=== PATIENT | female | born 1955 | race Caucasian/White ===

== ENCOUNTER 2017-03-14 18:54 | Inpatient (IN) ==
[2017-03-14] MEDS ORDERED: MORPHINE SULFATE 4mg INJECTION IVP ONE ×2 (19:10→20:02)
[2017-03-14] MEDS ORDERED: ONDANSETRON 4 MG/2 ML INJECTION IVP ONE (19:10)
[2017-03-14] MEDS ORDERED: NS 1,000 ML IV ONE (19:11)
--- NOTE | 2017-03-14 19:13 | Emergency Department Report ---
Abdominal Pain HPI - General Chief Complaint: Abdominal Pain Stated Complaint: abdominal pain Time Seen by Provider: 03/14/17 19:03 Source: patient Mode of arrival: ambulatory Limitations: no limitations - History of Present Illness HPI narrative: She has been having some epigastric abdominal pain for the last week. She started vomiting yesterday and has been having some diarrhea as well. Does not think that she has been having some fevers. Has not seen her PCP for this. MD complaint: abdominal pain, other (nausea/vomiting/diarrhea) Onset (ago): week(s) (1 week) Consistency: constant Severity: moderate Quality: sharp Radiation: none Relieving factors: nothing Exacerbating factors: nothing Associated symptoms: nausea, vomiting, diarrhea - Related Data Home Medications Medication Instructions Recorded Confirmed No known Home medications [No home 03/14/17 03/14/17 meds] Allergies Allergy/AdvReac Type Severity Reaction Status Date / Time No Known Allergies Allergy Verified 03/14/17 19:44 Review of Systems Constitutional: Denies: fever, chills, weakness ENT: Denies: ear pain, throat pain, congestion Cardiovascular: Denies: chest pain, palpitations, dyspnea on exertion Respiratory: Denies: cough Gastrointestinal: Reports: abdominal pain, nausea, vomiting, diarrhea Genitourinary: Denies: urgency, dysuria, frequency Integumentary: Denies: rash Neurological: Denies: headache, weakness, numbness, paresthesias PFSH Patient Stated Medical History Hypertension Yes Post Menopausal Yes Daily ETOH Surgical History: Cholecystectomy - Social History Smoking status: Heavy tobacco smoker Substance use type: does not use Alcohol intake frequency: 0-2 drinks per day Physical Exam - Limitations Limitations: no limitations - General General appearance: alert, in no apparent distress - Normal Exams: Neck:: Full range of motion, without adenopathy, JVD, bruits or thyromegaly Chest/Respirations:: Clear all baltazar, with good airflow, and symmetry bilaterally Cardiovascular:: Regular rate and rhythm, without murmur or gallop, Pulses 2+ all extremities, capillary refill, <2 seconds all extremities Abdomen:: Bowel sounds positive, non-distended, no hepatosplenomegaly, masses or bruits noted Neurological:: Patient is alert, and oriented Psychiatric:: Patient exhibits, appropriate attention, emotion and affect - Abdominal Exam Abdominal exam: Present: soft, tenderness (TTP in the epigastric region but without guarding), normal bowel sounds. Absent: distention, guarding, rebound Abdominal Pain - [facility] Narrative Medical decision making narrative: Lipase is elevated at 25,000. Ct does show pancreatitis with some and some edema of duodenum. She has had her gallbladder out. Does admit to drinking rum daily. Discussed findings with Dr Mcduffie. Will admit at this time. - Differential Diagnosis Differential diagnosis: Likely: abdominal pain, acute appendicitis, constipation , pancreatitis, small bowel obstruction - Lab Data Attestation: I reviewed the patient's lab results. Result diagrams: 03/14/17 19:28 03/14/17 19:28 - Radiology Data Attestation: I reviewed the patient's radiology results. CT abdomen/pelvis: acute pancreatitis favored over duodenitis. Fatty liver. Disposition Clinical Impression: Pancreatitis Qualifiers: Chronicity: acute Pancreatitis type: alcohol induced Acute pancreatitis complication: unspecified Qualified Code(s): K85.20 - Alcohol induced acute pancreatitis without necrosis or infection [place] [facility] [place] Care Condition: Stable Prescriptions: No Action No known Home medications [No home meds] 0 #0 [facility] [place] Referrals: Jorge Levy MD [Family Provider] - Time of Disposition: 21:20 - Seen By: midlevel
[2017-03-14] MEDS: SALINE FLUSH 10ml SYRINGE IVF PRN (19:29)
[2017-03-14] MEDS ORDERED: SALINE FLUSH 10ml SYRINGE ONE (20:16)
[2017-03-14] MEDS ORDERED: IOHEXOL 300mg/ml 75ml INJECTION ONE (20:16)
[2017-03-14] MEDS ORDERED: ALBUTEROL 2.5mg/3ml (0.083%) NEB AEROSOL PRN (22:08)
[2017-03-14] MEDS ORDERED: ONDANSETRON 4 MG/2 ML INJECTION IVP PRN (22:08)
[2017-03-14] MEDS ORDERED: METOCLOPRAMIDE 10mg/2ml INJECTION IVP PRN (22:08)
[2017-03-14] MEDS: LR 1,000 ML IV SCH (22:24)
[2017-03-14] MEDS: PANTOPRAZOLE 40 MG INJECTION IVP SCH (22:29)
[2017-03-14] MEDS ORDERED: KETOROLAC 15 MG/ML INJECTION IVP ONE (22:42)
--- NOTE | 2017-03-14 22:47 | History & Physical Report ---
History of Present Illness Date: 03/15/17 Chief complaint: abdominal pain HPI: Please note that the patient was seen via telemedicine with nursing assistance on 03/14/2017. Ms. Mark is a 61yo woman with history choly and appy along with etoh abuse. She presents with epigastric pain for nearly a week now over 5/10 and constant. Emesis stated yesterday and last stools 2 days ago loose. No blood in emesis or stool. No fevers, chills, sob. No meds normally. Recognizes half a pint of rum a day with no change. No weight change. No prior pancreatitis. Review of Systems All systems PM: 10-point ROS was reviewed, no additional remarkable complaints except Past Medical History Patient Stated Medical History Hypertension Yes Post Menopausal Yes Surgical History: Cholecystectomy. appy Family History Updates: father with CHF. mother breat cancer - Social History Smoking status: Current every day smoker Substance use type: does not use Alcohol intake frequency: 3 or more drinks per day Current occupational exposures/hazards: No Medications Home Medications Medication Instructions Recorded Confirmed Type No known Home medications [No home 03/14/17 03/14/17 History meds] Allergies Allergy/AdvReac Type Severity Reaction Status Date / Time No Known Allergies Allergy Verified 03/14/17 19:44 Exam Vital Signs: Temperature 98 F 03/14/17 22:09 Pulse Rate 68 03/14/17 22:09 Respiratory Rate 16 03/14/17 22:09 Blood Pressure 176/86 H 03/14/17 22:09 Pulse Oximetry 100 03/14/17 22:09 Telemetry Rhythm: Sinus Rhythm Height/Weight/BMI: Height 1.75 m Weight 63.2 kg Body Mass Index 20.5 - Constitutional Present: moderate distress - Routine HEENT Exam Eye: Present: EOMI ENT: Present: mucous membranes dry - Routine Neck Exam Present: full ROM - Routine Respiratory Exam Present: CTA bilaterally. Absent: accessory muscle use - Routine Cardiovascular Exam Present: RRR, S1, S2. Absent: no murmur - Routine Abdominal Exam Present: soft, tenderness Comments: hyperactive bowel sounds, no rebound or guarding - Routine Extremities Exam Absent: cyanosis, clubbing - Routine Back/Spine/Pelvis Exam Back/Spine: Present: full ROM - Routine Skin Exam Present: intact. Absent: cyanosis - Routine Neurological Exam Present: alert, oriented X3, CN II-XII intact Results - Labs CBC & Chem 7: 03/14/17 19:28 03/15/17 04:30 Assessment and Plan (1) Acute pancreatitis Current visit: Yes Status: Acute (2) Hypokalemia Current visit: Yes Status: Acute (3) Hypernatremia Current visit: Yes Status: Acute (4) Alcohol abuse Current visit: Yes Status: Acute (5) Tobacco abuse Current visit: Yes Status: Acute Assessment and Plan: 1. Acute alcohol induced pancreatitis--admit to inpatient with NPO to clear liquids tomorrow, IVF, PPI IV, prn pain and nausea medications. See 2. 2. Alcohol abuse--needs to stop with transaminitis. She understands. Thiamine , folate prn ativan with no prior withdrawal symptoms. 3. Tobacco abuse--needs to stop. 4. Hypernatremia and hypokalemia due to dehydration/emesis--IVF and recheck. 5. Hypoxia--monitor with splinting hopefully causal. prn nebs. Addendum by Dr. Mills HPI: I have seen and examined patient. She has had 2 days increasing nagging epigastric tenderness that it only worsened until admission. Decided slightly today with use of fluids and lack of oral intake. I agree with the note by Dr. Mcduffie ROS: have read the above note and no further additions to be made PMH PSH FH/SH: agree with above. No pertinent further family history PE: My findings agree with above. Abdomen dry box tender bowel sounds a rather muted. There is mild distention. Labs: reviewed. CT reviewed and shows acute edema surrounding the pancreas by my interpretation AP: as listed above. Patient is showing a CIWA score of 2 to4 throughout the day. I've encouraged her to request Ativan as needed. We've had a 10 minute discussion regarding smoking and alcohol cessation as these are her greatest modifiable risk factors. I am ordering a lipid panel for tomorrow in case there is extreme hypertriglyceridemia. Otherwise continue with care DVT Prophylaxis: SCD's GI Prophylaxis: Protonix - Physician Narrative Narrative: Date: 03/14/17 Time: 2243 Hospital Course Summary Disclaimer: The visit summary below is not to be considered part of the above Progress Note.
[2017-03-15] MEDS: MORPHINE SULFATE 4mg INJECTION IVP PRN ×4 (00:38→12:39)
[2017-03-15] MEDS ORDERED: NICOTINE PATCH REMOVAL TD PRN (06:18)
[2017-03-15] MEDS: LR 1,000 ML IV SCH ×5 (06:33→18:57)
[2017-03-15] MEDS: LORazepam 1 MG TABLET PO PRN ×2 (08:37→19:19)
[2017-03-15] MEDS: FOLIC ACID 1 MG TABLET PO SCH (08:37)
[2017-03-15] MEDS: SALINE FLUSH 10ml SYRINGE IVF PRN ×2 (12:39→21:25)
--- NOTE | 2017-03-15 13:01 | CT Scan Report ---
EXAM: CT abdomen pelvis w con DATE: 03/14/2017 12:00 AM ENCOUNTER: Initial INDICATION: abdominal pain COMPARISON: None available. TECHNIQUE: CT of the abdomen and pelvis with IV contrast. The patient received 74.3 mL of Omnipaque 300 without complication. Coronal and sagittal reformatted images were performed. The current CT scan was performed using radiation dose-reduction techniques. FINDINGS: Lower Chest: Bilateral dependent atelectasis within the visualized lung bases. The heart is normal in size without pericardial effusion. Abdomen: No intraperitoneal free air. Prominent inflammatory stranding and central mesenteric edema within the upper abdomen surrounding the duodenum and pancreas. No lymphadenopathy. Liver: The liver demonstrates diffuse hypoattenuation consistent with steatosis but enhances homogeneously without focal masses. Gallbladder and biliary: The gallbladder is surgically absent. No biliary ductal dilatation. Spleen: The spleen appears normal. Pancreas: The pancreas enhances homogeneously without necrosis or pseudocyst appreciated. Adrenal glands: The adrenal glands are normal in size and attenuation. Kidneys/ureters: The kidneys appear normal. The ureters are normal in course and caliber. GI tract: The stomach, small bowel, and colon appear grossly normal. The appendix is surgically absent. Vascular structures: The aorta is normal in course and caliber with aortoiliac atherosclerotic calcifications noted. The mesenteric arterial and venous structures appear patent. Pelvis: No pelvic free fluid. No pelvic lymphadenopathy. Calcified pelvic phleboliths. Bladder: The bladder appears normal. Genital system: The uterus and ovaries appear grossly normal. Skeletal structures and soft tissues: No acute osseous or soft tissue abnormality identified. Degenerative spondylosis of the visualized spine. IMPRESSION: 1. Prominent inflammatory stranding and mesenteric edema within the central upper abdomen surrounding the pancreas and duodenum likely representing acute pancreatitis versus less likely duodenitis. No pancreatic necrosis or pseudocyst identified. 2. Hepatic steatosis. 3. Cholecystectomy. The above report concurs with the preliminary report provided by [employer] at 9:00 PM. .
[2017-03-15] MEDS ORDERED: PNEUMOCOCCAL 13 VACCINE 0.5ml INJECTION IM ONE (14:49)
[2017-03-15] MEDS ORDERED: INFLUENZA VAC QIV 2017-18 (Fluarix*)(>=3yo) 0.5ml IM ONE (14:49)
[2017-03-15] MEDS ORDERED: INFLUENZA VAC. INJ. ADMIN CHARGE INJ ONE (15:00)
[2017-03-15] MEDS ORDERED: PNEUMOCOCCAL VAC ADMIN CHARGE INJ ONE (16:00)
[2017-03-15] MEDS: LABETALOL 100mg/20ml INJECTION IVP PRN (21:24)
[2017-03-15] MEDS: PANTOPRAZOLE 40 MG INJECTION IVP SCH (22:27)
[2017-03-15] MEDS ORDERED: FALL RISK - PHARMACY CONSULT XX ONE (23:04)
[2017-03-16] MEDS: LR 1,000 ML IV SCH ×5 (00:06→16:51)
[2017-03-16] MEDS: SALINE FLUSH 10ml SYRINGE IVF PRN ×2 (00:46→06:30)
[2017-03-16] MEDS: LABETALOL 100mg/20ml INJECTION IVP PRN ×2 (02:14→15:40)
[2017-03-16] MEDS ORDERED: MORPHINE SULFATE 2mg INJECTION IVP PRN (07:18)
[2017-03-16] MEDS: NICOTINE 14 MG PATCH TD PRN (07:53)
[2017-03-16] MEDS: MAGNESIUM SULFATE 1gm PREMIX 1 GM/100 ML BAG IV SCH ×2 (08:38→09:40)
--- NOTE | 2017-03-16 08:56 | Progress Note ---
- Date 03/16/17 Subjective: Marlena has been incredibly agitated all night. Staff has administered Ativan 2 mg nearly each hour. She hasn't been confused, just becomes angry/belligerent , tries to get out of bed and leave. She has been denying pain. When I arrived, she was resting with her eyes closed. She startled awake when the nurse put a BP cuff on and stated "I'm still here?" (along with profanity) then closed her eyes again. She has not had any seizures. She told the RN that she actually drinks about 3 pints of rum daily (versus 1/2 pint as she initially reported). Objective Vital signs: Temperature 97.9 F 03/16/17 08:00 Pulse Rate 84 03/16/17 08:00 Respiratory Rate 16 03/16/17 08:00 Blood Pressure 168/88 H 03/16/17 08:00 Pulse Oximetry 97 03/16/17 08:00 Height/Weight/BMI: Height 1.75 m Weight 64.6 kg Body Mass Index 20.5 - Constitutional Present: well nourished, well developed, other (see subjective) - Routine HEENT Exam Head: Present: normocephalic ENT: Present: oropharynx clear - Routine Respiratory Exam Present: CTA bilaterally - Routine Cardiovascular Exam Present: RRR, S1, S2 - Routine Abdominal Exam Present: normoactive bowel sounds, non tender, distended (mild), organomegaly ( hepatomegaly) - Routine Extremities Exam Present: no edema, pulses intact - Routine Musculoskeletal Exam Musculoskeletal: Present: no joint swelling - Routine Skin Exam Present: intact, dry, warm - Routine Neurological Exam When awake, there were no obvious neurologic deficits. She moves all extremities equally. - Routine Psychiatric Exam Present: agitated Results - Labs CBC & Chem 7: 03/16/17 03:20 03/16/17 03:24 Assessment and Plan (1) Acute pancreatitis Current visit: Yes Status: Acute (2) Hypokalemia Current visit: Yes Status: Acute (3) Hypernatremia Current visit: Yes Status: Acute (4) Alcohol abuse Current visit: Yes Status: Acute (5) Tobacco abuse Current visit: Yes Status: Acute Assessment and Plan: IMPRESSION AND PLAN 1. Acute alcohol induced pancreatitis--continue supportive care. Pain seems improved on 03/16/17. Continue clear liquid diet. Triglycerides (75); total cholesterol (202) 2. Alcohol abuse--requiring frequent high doses of high risk medication, IV ativan. Add Librium per detox order set. LFTs trending down. 3. Tobacco abuse--tobacco cessation counseling ordered. 4. Hypernatremia and hypokalemia due to dehydration/emesis--Na decreased and now low at 133; K improved to 3.7 5. Hypomagnesemia--Mg bolus ordered; recheck in am. 6. Hypoxia--resolved; maintaining sats on room air. Addendum by Dr. Mills Seen and examined patient on same day as the above note. Agree with history, physical, assessment and plan. Comprehensive physical findings correlate to the above note by nurse practitioner Barbie Damon. Patient is back to somnolent status by time of my seeing her, she is just gotten another dose of Ativan. I've also spoken to her over the phone who is called approximately every 2 hours according to nursing. His speech is slurred, his conversation meanders pointlessly. He has assured me that he has removed all the alcohol from the house, but his conversation signals that her abstinence is going to be a complex family dynamic. Documented on [employer] speech to text. Efforts to correct speech recognition errors performed, but variation may exist GI Prophylaxis: Protonix Resuscitation Status: Full Code - Physician Narrative Narrative: Date: 03/16/17 Time: 0851 Hospital Course Summary Disclaimer: The visit summary below is not to be considered part of the above Progress Note. Hospital Course: 03/15/17 1. Acute alcohol induced pancreatitis--admit to inpatient with NPO to clear liquids tomorrow, IVF, PPI IV, prn pain and nausea medications. See 2. 2. Alcohol abuse--needs to stop with transaminitis. She understands. Thiamine , folate prn ativan with no prior withdrawal symptoms. 3. Tobacco abuse--needs to stop. 4. Hypernatremia and hypokalemia due to dehydration/emesis--IVF and recheck. 5. Hypoxia--monitor with splinting hopefully causal. prn nebs. 03/16/17 1. Acute alcohol induced pancreatitis--continue supportive care. Pain seems improved on 03/16/17. Continue clear liquid diet. Triglycerides (75); total cholesterol (202) 2. Alcohol abuse--requiring frequent high doses of IV ativan. Add Librium per detox order set. LFTs trending down. 3. Tobacco abuse--tobacco cessation counseling ordered. 4. Hypernatremia and hypokalemia due to dehydration/emesis--Na decreased and now low at 133; K improved to 3.7 5. Hypomagnesemia--Mg bolus ordered; recheck in am. 6. Hypoxia--resolved; maintaining sats on room air.
[2017-03-16] MEDS: FOLIC ACID 1 MG TABLET PO SCH (10:44)
[2017-03-16] MEDS: PANTOPRAZOLE 40 MG INJECTION IVP SCH (22:23)
[2017-03-17] MEDS: LR 1,000 ML IV SCH (06:30)
[2017-03-17] MEDS ORDERED: POTASSIUM CHLORIDE INJ 20 MEQ in NS 1,000 ML IV SCH (08:15)
[2017-03-17] MEDS: NS with KCL 20mEq 1,000ml IV SCH (08:40)
[2017-03-17] MEDS: LIDOCAINE 1% INJ 10 MG, POTASSIUM CHLORIDE INJ 10 MEQ in NS 100 ML IV SCH ×4 (08:51→13:19)
--- NOTE | 2017-03-17 09:14 | Progress Note ---
- Date 03/17/17 Subjective: Marlena has had episodes of confusion and ongoing agitation. She has been tremulous. She frequently tries to climb out of bed and asks to leave. She is accusing the nursing staff of not letting her leave or eat anything. She denies any abdominal pain or nausea. Objective Vital signs: Temperature 99.4 F 03/17/17 07:04 Pulse Rate 85 03/17/17 07:04 Respiratory Rate 18 03/17/17 07:04 Blood Pressure 179/91 H 03/17/17 07:04 Pulse Oximetry 93 03/17/17 07:04 Height/Weight/BMI: Height 1.75 m Weight 63.5 kg Body Mass Index 20.5 - Constitutional Present: mild distress, thin - Routine HEENT Exam Head: Present: normocephalic Eye: Present: PERRL ENT: Present: oropharynx clear - Routine Respiratory Exam Present: CTA bilaterally - Routine Cardiovascular Exam Present: RRR, S1, S2 - Routine Abdominal Exam Present: normoactive bowel sounds, tenderness (minimal diffuse), distended (mild ) - Routine Extremities Exam Present: no edema, pulses intact - Routine Musculoskeletal Exam Musculoskeletal: Present: moving extremities well - Routine Skin Exam Present: dry, warm - Routine Psychiatric Exam Present: agitated Results - Labs CBC & Chem 7: 03/17/17 04:42 03/17/17 15:55 Assessment and Plan (1) Acute pancreatitis Current visit: Yes Status: Acute (2) Hypokalemia Current visit: Yes Status: Acute (3) Hypernatremia Current visit: Yes Status: Acute (4) Alcohol abuse Current visit: Yes Status: Acute (5) Tobacco abuse Current visit: Yes Status: Acute Assessment and Plan: IMPRESSION AND PLAN 1. Acute alcohol induced pancreatitis--continue supportive care. Lipase trending down and symptoms improving. Advance diet to full liquid. 2. Alcohol abuse--requiring frequent high doses of high risk medication, IV ativan for confusion, agitation, tremors. Continue Librium PRN. LFTs improving. Will need to assess willingness for abstinence/referral to support group when her confusion improves. 3. Hypernatremia and hypokalemia due to dehydration/emesis--Na improved but K has decreased to 2.9 and IV bolus has been ordered 4. Hypomagnesemia--resolved. 5. Tobacco abuse--tobacco cessation counseling ordered. 6. Hypoxia--resolved; maintaining sats on room air. Addendum by Dr. Mills: Seen and examined patient on same day as the above note. Agree with nurse practitioner Barbie Damon's subjective note, physical, assessment and plan. Comprehensive physical findings correlate to the above note. She is resting better by the time I had seen her but know that she becomes irritable when rousing. She is tremulous and I'm concerned that she will physically deconditioned as she recovers from her alcoholic withdrawal. I've increased her thiamine to reflect severity of her withdrawal. I am hoping that she will recover before she requires reconditioning Documented on [employer] speech to text. Efforts to correct speech recognition errors performed, but variation may exist DVT Prophylaxis: SCD's GI Prophylaxis: Protonix Resuscitation Status: Full Code - Physician Narrative Narrative: Date: 03/17/17 Time: 912 Hospital Course Summary Disclaimer: The visit summary below is not to be considered part of the above Progress Note. Hospital Course: 03/15/17 1. Acute alcohol induced pancreatitis--admit to inpatient with NPO to clear liquids tomorrow, IVF, PPI IV, prn pain and nausea medications. See 2. 2. Alcohol abuse--needs to stop with transaminitis. She understands. Thiamine , folate prn ativan with no prior withdrawal symptoms. 3. Tobacco abuse--needs to stop. 4. Hypernatremia and hypokalemia due to dehydration/emesis--IVF and recheck. 5. Hypoxia--monitor with splinting hopefully causal. prn nebs. 03/16/17 1. Acute alcohol induced pancreatitis--continue supportive care. Pain seems improved on 03/16/17. Continue clear liquid diet. Triglycerides (75); total cholesterol (202) 2. Alcohol abuse--requiring frequent high doses of IV ativan. Add Librium per detox order set. LFTs trending down. 3. Hypernatremia and hypokalemia due to dehydration/emesis--Na decreased and now low at 133; K improved to 3.7 4. Hypomagnesemia--Mg bolus ordered; recheck in am. 5. Hypoxia--resolved; maintaining sats on room air. 03/17/17 1. Acute alcohol induced pancreatitis--continue supportive care. Lipase trending down and symptoms improving. Advance diet to full liquid. 2. Alcohol abuse--requiring frequent high doses of high risk medication, IV ativan for confusion, agitation, tremors. Continue Librium PRN. LFTs improving. Will need to assess willingness for abstinence/referral to support group when her confusion improves. 3. Hypernatremia and hypokalemia due to dehydration/emesis--Na improved but K has decreased to 2.9 and IV bolus has been ordered 4. Hypomagnesemia--resolved.
[2017-03-17] MEDS: FOLIC ACID 1 MG TABLET PO SCH (10:09)
[2017-03-17] MEDS: NICOTINE 14 MG PATCH TD PRN (10:10)
[2017-03-17] MEDS: LORazepam 1 MG TABLET PO PRN (13:25)
[2017-03-17] MEDS: THIAMINE IV SCH (14:51)
[2017-03-17] MEDS: NS IV SCH (14:51)
[2017-03-17] MEDS: LABETALOL 100mg/20ml INJECTION IVP PRN (15:28)
[2017-03-17 15:39] VITALS: BMI 20.7
[2017-03-18] MEDS: NS with KCL 20mEq 1,000ml IV SCH ×3 (03:15→19:43)
[2017-03-18] MEDS: PANTOPRAZOLE 20 MG TABLET PO SCH (06:04)
[2017-03-18] MEDS: FOLIC ACID 1 MG TABLET PO SCH (08:58)
[2017-03-18] MEDS: NS IV SCH (08:59)
[2017-03-18] MEDS: THIAMINE IV SCH (08:59)
[2017-03-18] MEDS ORDERED: THIAMINE 200mg/2ml INJECTION IM SCH (09:00)
--- NOTE | 2017-03-18 10:25 | Progress Note ---
- Date 03/18/17 Subjective: Marlena was alert, sitting up in bed, calmer this morning. She communicates much more clearly, and told her nurse that she feels anxious and wants to go home. She is confused to date. She wanted to try to eat her breakfast on her own but found she needed nursing help. She is weak overall and tremulous. She states that she rested well last night. She denies abdominal pain or nausea. She stated that she wants to get treatment for her alcohol abuse. Objective Vital signs: Temperature 98.1 F 03/18/17 08:00 Pulse Rate 84 03/18/17 08:00 Respiratory Rate 18 03/18/17 08:00 Blood Pressure 168/96 H 03/18/17 08:00 Pulse Oximetry 95 03/18/17 08:00 Height/Weight/BMI: Height 1.75 m Weight 64.3 kg Body Mass Index 20.7 - Constitutional Present: well nourished, well developed, thin - Routine HEENT Exam Head: Present: normocephalic ENT: Present: oropharynx clear - Routine Respiratory Exam Present: CTA bilaterally - Routine Cardiovascular Exam Present: RRR, S1, S2 - Routine Abdominal Exam Present: normoactive bowel sounds, non tender, distended (mild) - Routine Extremities Exam Present: no edema - Routine Musculoskeletal Exam Musculoskeletal: Present: no erythema - Routine Skin Exam Present: intact, warm. Absent: dry (slightly diaphoretic) - Routine Neurological Exam Present: alert. Absent: oriented X3 - Routine Psychiatric Exam Present: cooperative Results - Labs CBC & Chem 7: 03/17/17 04:42 03/18/17 03:52 Assessment and Plan (1) Acute pancreatitis Current visit: Yes Status: Acute (2) Alcohol abuse Current visit: Yes Status: Acute Assessment and Plan: IMPRESSION Acute alcohol induced pancreatitis Alcohol abuse Hypokalemia Hypernatremia--resolved Hypomagnesemia--resolved Deconditioning and acute debility Tobacco abuse Hypoxia--resolved PLAN Pancreatitis symptoms are improving. Will advance diet to regular. Decrease rate of IVF. Hypokalemia -- attempt oral replacement today. Hypernatremia -- resolved. Deconditioning -- consult PT/OT. Alcohol abuse -- interested in seeking treatment. Will discuss with CM. Continue Ativan (last dose yesterday morning) PRN & Librium PRN. Cont folate and thiamine. DVT Prophylaxis: SCD's GI Prophylaxis: Protonix Resuscitation Status: Full Code - Physician Narrative Physician: Jazmin Ga MD Narrative: Date: 03/18/17 Time: 1700 I have independently evaluated and examined this patient. I reviewed the chart, the patient's history, and the SOFTWARE VALIDATION TECHNICIAN/PA's documented findings as above. We discussed and formulated the assessment and plan as above with additions as below: Mrs. Mark was seen late this morning at which time she described feeling hungry and reported that her abdominal muscles are crampy and sore but she denied abdominal pain or nausea/vomiting. She reported that she was able to walk a short distance with physical therapy using a walker. She denied dyspnea and again reiterated that she wants to go home. Patient was slightly tremulous when seen but there is no flap present Digits are clubbed Sclera are nonicteric Abdomen was soft with mild epigastric tenderness without guarding Several doses of lorazepam and one dose Librium administered yesterday, no benzos given today. Persistently elevated blood pressures with poor response to low-dose IV labetalol earlier this afternoon. Single dose 0.1 mg clonidine given; will initiate metoprolol 25 mg twice a day as I suspect long-term therapy is needed and patient would benefit from beta tamia although initial abdominal CT report did not describe cirrhosis/portal hypertension. Carvedilol may be a better option for management longer-term; I am concerned the patient will not tolerate a nonselective beta tamia due to long tobacco history and risk of bronchospasm. Hospital Course Summary Disclaimer: The visit summary below is not to be considered part of the above Progress Note. Hospital Course: 03/15/17 1. Acute alcohol induced pancreatitis--admit to inpatient with NPO to clear liquids tomorrow, IVF, PPI IV, prn pain and nausea medications. See 2. 2. Alcohol abuse--needs to stop with transaminitis. She understands. Thiamine , folate prn ativan with no prior withdrawal symptoms. 3. Tobacco abuse--needs to stop. 4. Hypernatremia and hypokalemia due to dehydration/emesis--IVF and recheck. 5. Hypoxia--monitor with splinting hopefully causal. prn nebs. 03/16/17 1. Acute alcohol induced pancreatitis--continue supportive care. Pain seems improved on 03/16/17. Continue clear liquid diet. Triglycerides (75); total cholesterol (202) 2. Alcohol abuse--requiring frequent high doses of IV ativan. Add Librium per detox order set. LFTs trending down. 3. Hypernatremia and hypokalemia due to dehydration/emesis--Na decreased and now low at 133; K improved to 3.7 4. Hypomagnesemia--Mg bolus ordered; recheck in am. 5. Hypoxia--resolved; maintaining sats on room air. 03/17/17 1. Acute alcohol induced pancreatitis--continue supportive care. Lipase trending down and symptoms improving. Advance diet to full liquid. 2. Alcohol abuse--requiring frequent high doses of high risk medication, IV ativan for confusion, agitation, tremors. Continue Librium PRN. LFTs improving. Will need to assess willingness for abstinence/referral to support group when her confusion improves. 3. Hypernatremia and hypokalemia due to dehydration/emesis--Na improved but K has decreased to 2.9 and IV bolus has been ordered 4. Hypomagnesemia--resolved. 03/18/17 Pancreatitis symptoms are improving. Will advance diet to regular. Decrease rate of IVF. Hypokalemia -- attempt oral replacement today. Hypernatremia -- resolved. Deconditioning -- consult PT/OT. Alcohol abuse -- interested in seeking treatment. Will discuss with CM. Continue Ativan (last dose yesterday morning) PRN & Librium PRN.
[2017-03-18] MEDS: LABETALOL 100mg/20ml INJECTION IVP PRN (16:09)
[2017-03-18] MEDS ORDERED: HYDRALAZINE 20 MG/ML INJECTION IVP PRN (19:01)
[2017-03-19 00:17] VITALS: RESP 16
[2017-03-19] MEDS: NS with KCL 20mEq 1,000ml IV SCH ×2 (01:58→08:56)
[2017-03-19] MEDS: PANTOPRAZOLE 20 MG TABLET PO SCH (06:45)
--- NOTE | 2017-03-19 09:54 | Progress Note ---
- Date 03/19/17 Subjective: Marlena was sleeping, and didn't easily awaken. Per nursing, she had a rough night. She was agitated, and frequently used the phone in her room to call the nursing station and tell them she was being held hostage. She tries to stand up on her own. A few minutes later, she was sitting up in bed, and there was blood on the floor -- she tried to take out her IV. Objective Vital signs: Temperature 98.6 F 03/19/17 00:00 Pulse Rate 86 03/19/17 00:00 Respiratory Rate 16 03/19/17 00:00 Blood Pressure 177/96 H 03/19/17 00:00 Pulse Oximetry 99 03/19/17 00:00 Height/Weight/BMI: Height 1.75 m Weight 64.3 kg Body Mass Index 20.7 - Constitutional Present: well nourished, well developed, thin - Routine HEENT Exam ENT: Present: oropharynx clear - Routine Respiratory Exam Present: CTA bilaterally - Routine Cardiovascular Exam Present: RRR, S1, S2 - Routine Abdominal Exam Present: soft, normoactive bowel sounds, non distended, non tender - Routine Extremities Exam Present: clubbing, no edema - Routine Musculoskeletal Exam Musculoskeletal: Absent: no clubbing or cyanosis - Routine Skin Exam Present: intact, dry, lesions - Routine Neurological Exam sleeping initially, later she was sitting up in bed, confused - Routine Psychiatric Exam Absent: normal affect, normal thought process Results - Labs CBC & Chem 7: 03/17/17 04:42 03/19/17 10:52 Assessment and Plan (1) Acute pancreatitis Status: Acute (2) Alcohol abuse Status: Acute Assessment and Plan: IMPRESSION Acute alcohol induced pancreatitis Alcohol abuse Hypokalemia Hypernatremia--resolved Hypomagnesemia--resolved Deconditioning and acute debility Tobacco abuse Hypoxia--resolved PLAN Pancreatitis -- diet was upgraded but PO intake of food is still poor. Liquid intake is improving. Will DC IVF. Hypokalemia -- increase KDur to 40 mEq TID, but if she is unable to take KDur, we will need to give her IV K bolus. Deconditioning -- consult PT/OT. Alcohol abuse -- still with agitation, confusion, withdrawal symptoms. Received IV dose of IV Ativan around 0500. PRN & Librium PRN. Cont folate and thiamine. Elevated BP -- possibly r/t withdrawal; metoprolol started yesterday. DVT Prophylaxis: SCD's GI Prophylaxis: Protonix Resuscitation Status: Full Code - Physician Narrative Physician: Jazmin Ga MD Narrative: Date: 03/19/17 Time: 1600 I have independently evaluated and examined this patient. I reviewed the chart, the patient's history, and the TYPE INSPECTOR/PA's documented findings as above. We discussed and formulated the assessment and plan as above with additions as below: Mrs. Mark complained of some mild abdominal pain like someone "socked her". She's had no nausea or vomiting however. She reports her appetite is poor and that food simply doesn't appeal to her but reports she is drinking liquids adequately. She denied dyspnea. She has multiple frustrations and has been verbally abusive and argumentative with the staff throughout the day. She reports she can't rest in the hospital and is frustrated that a bunch of 30-year -old's are continually hovering around her. She simply wants to go home and be left alone. She plans to participate in a evangelical group to help with sobriety and after fairly lengthy discussion agreed to home health for physical therapy before depending on evangelical or [facility] exercise classes for strengthening. The patient was ambulating in the room utilizing a walker when I visited, been down and picked up her phone from the floor doing so without losing her balance, and slowly made her way around the room and several obstacles to sit down. She calmed as we discussed the medication she is on and why she is on them in addition to the severity of her presenting illness and why her hospitalization has been as long as it has been. I told her that I felt she would benefit from remaining in the hospital another day to work with physical therapy but that if she felt strongly about discharge today and would agree to home health physical therapy discharge can be coordinated today. The patient was oriented to [facility], the end of February 2017. She describes a coherent plan for outpatient follow-up for alcohol treatment. Respirations were nonlabored with good airflow and breath sounds clear. There is minimal tenderness in the epigastrium on palpation of the abdomen and bowel sounds are present. Discharge plans were reviewed with the patient's [id number] and later with her by phone. Additionally plans were discussed with case management who is coordinating home health. Prescription provided for walker at home. Indication for prescribed medications reviewed with the patient. Please refer to the discharge summary for additional details. Hospital Course Summary Disclaimer: The visit summary below is not to be considered part of the above Progress Note. Hospital Course: 03/15/17 1. Acute alcohol induced pancreatitis--admit to inpatient with NPO to clear liquids tomorrow, IVF, PPI IV, prn pain and nausea medications. See 2. 2. Alcohol abuse--needs to stop with transaminitis. She understands. Thiamine , folate prn ativan with no prior withdrawal symptoms. 3. Tobacco abuse--needs to stop. 4. Hypernatremia and hypokalemia due to dehydration/emesis--IVF and recheck. 5. Hypoxia--monitor with splinting hopefully causal. prn nebs. 03/16/17 1. Acute alcohol induced pancreatitis--continue supportive care. Pain seems improved on 03/16/17. Continue clear liquid diet. Triglycerides (75); total cholesterol (202) 2. Alcohol abuse--requiring frequent high doses of IV ativan. Add Librium per detox order set. LFTs trending down. 3. Hypernatremia and hypokalemia due to dehydration/emesis--Na decreased and now low at 133; K improved to 3.7 4. Hypomagnesemia--Mg bolus ordered; recheck in am. 5. Hypoxia--resolved; maintaining sats on room air. 03/17/17 1. Acute alcohol induced pancreatitis--continue supportive care. Lipase trending down and symptoms improving. Advance diet to full liquid. 2. Alcohol abuse--requiring frequent high doses of high risk medication, IV ativan for confusion, agitation, tremors. Continue Librium PRN. LFTs improving. Will need to assess willingness for abstinence/referral to support group when her confusion improves. 3. Hypernatremia and hypokalemia due to dehydration/emesis--Na improved but K has decreased to 2.9 and IV bolus has been ordered 4. Hypomagnesemia--resolved. 03/18/17 Pancreatitis symptoms are improving. Will advance diet to regular. Decrease rate of IVF. Hypokalemia -- attempt oral replacement today. Hypernatremia -- resolved. Deconditioning -- consult PT/OT. Alcohol abuse -- interested in seeking treatment. Will discuss with CM. Continue Ativan (last dose yesterday morning) PRN & Librium PRN. 03/19/17 Pancreatitis -- diet was upgraded but PO intake of food is still poor. Liquid intake is improving. Will DC IVF. Hypokalemia -- increase KDur to 40 mEq TID, but if she is unable to take KDur, we will need to give her IV K bolus. Alcohol abuse -- still with agitation, confusion, withdrawal symptoms. Received IV dose of IV Ativan around 0500. PRN & Librium PRN. Cont folate and thiamine. Elevated BP -- possibly r/t withdrawal; metoprolol started yesterday.
[2017-03-19] MEDS: FOLIC ACID 1 MG TABLET PO SCH ×2 (10:43→15:14)
[2017-03-19 10:49] VITALS: BP 154/90; PULSE 88; TEMP 97.5; O2SAT 97
[2017-03-19] MEDS: THIAMINE IV SCH (15:15)
[2017-03-19] MEDS: NS IV SCH (15:15)
[2017-03-19] MEDS ORDERED: MAGNESIUM OXIDE 400 MG TABLET PO SCH (16:45)
[2017-03-19] MEDS: CARVEDILOL 6.25 MG TABLET PO SCH ×2 (16:47→19:11)
--- NOTE | 2017-03-19 20:27 | Discharge Summary ---
Discharge Information Date of admission: 03/14/17 21:29 Anticipated date of discharge: 03/19/17 Attending Physician: Jazmin Ga MD Primary care physician: Charisma Mary APRN Consults: Case Management Consult [CONS] Routine Reason For Exam: ETOH ABUSE - Discharge Diagnosis (1) Acute pancreatitis Status: Acute (2) Alcohol abuse Status: Acute Acute alcohol induced pancreatitis Alcohol abuse with alcohol withdrawal Hypokalemia Hypernatremia Hypomagnesemia Hypertension Deconditioning and acute debility Tobacco abuse Hypoxia--resolved - Laboratory Labs: On date of admission (03/14/17) white count 7.0, hemoglobin 13.7, MCV 100.0, and platelet count 168K. sodium 149, potassium 3.4, BUN 12, creatinine 0.9, AST 156 , ALT 75, lipase 25,641 Total cholesterol 202, LDL 122, HDL 65, triglycerides 75 on 03/1603/17/17 04:42 03/19/17 10:52 Lipase on the date of discharge 772 History of Present Illness HPI: Ms. Mark is a 61yo woman with history choly and appy along with etoh abuse. She presents with epigastric pain for nearly a week now over 5/10 and constant. Emesis stated yesterday and last stools 2 days ago loose. No blood in emesis or stool. No fevers, chills, sob. No meds normally. Recognizes half a pint of rum a day with no change. No weight change. No prior pancreatitis. Objective Vital signs: Temperature 97.5 F 03/19/17 10:47 Pulse Rate 88 03/19/17 10:47 Respiratory Rate 16 03/19/17 10:47 Blood Pressure 154/90 H 03/19/17 10:47 Pulse Oximetry 97 03/19/17 10:47 Height/Weight/BMI: Height 1.75 m Weight 64.3 kg Body Mass Index 20.7 Hospital Course This is a general summary of the patient's hospital course. For more details refer to the complete medical record. Hospital course: 03/15/17-admission 1. Acute alcohol induced pancreatitis--admit to inpatient with NPO to clear liquids tomorrow, IVF, PPI IV, prn pain and nausea medications. 2. Alcohol abuse--needs to stop with transaminitis. She acknowledges. Thiamine, folate, prn ativan with no prior withdrawal symptoms. 3. Tobacco abuse--needs to stop. 4. Hypernatremia and hypokalemia due to dehydration/emesis--IVF and recheck. 5. Hypoxia--monitor with splinting hopefully causal. prn nebs. 03/16/17 1. Acute alcohol induced pancreatitis--continue supportive care. Pain seems improved on 03/16/17. Continue clear liquid diet. Triglycerides (75); total cholesterol (202) 2. Alcohol abuse--requiring frequent high doses of IV ativan. Add Librium per detox order set. LFTs trending down. 3. Hypernatremia and hypokalemia due to dehydration/emesis--Na decreased and now low at 133; K improved to 3.7 4. Hypomagnesemia--Mg bolus ordered; recheck in am. 5. Hypoxia--resolved; maintaining sats on room air. 03/17/17 1. Acute alcohol induced pancreatitis--continue supportive care. Lipase trending down and symptoms improving. Advance diet to full liquid. 2. Alcohol abuse--requiring frequent high doses of high risk medication, IV ativan for confusion, agitation, tremors. Continue Librium PRN. LFTs improving. Will need to assess willingness for abstinence/referral to support group when her confusion improves. 3. Hypernatremia and hypokalemia due to dehydration/emesis--Na improved but K has decreased to 2.9 and IV bolus has been ordered 4. Hypomagnesemia--resolved. 03/18/17 Pancreatitis symptoms are improving. Will advance diet to regular. Decrease rate of IVF. Hypokalemia -- attempt oral replacement today. Hypernatremia -- resolved. Deconditioning -- consult PT/OT. Alcohol abuse -- interested in seeking treatment. Will discuss with CM. Continue Ativan (last dose yesterday morning) PRN & Librium PRN. Hypertension -- metoprolol initiated at 25 mg twice a day after poor response to dose of IV labetalol; systolic blood pressures 160-190 throughout the day. 03/19/17 Mrs. Mark complained of some mild abdominal pain like someone "socked her". She's had no nausea or vomiting however. She reports her appetite is poor and that food simply doesn't appeal to her but reports she is drinking liquids adequately and IV fluids discontinued. She denied dyspnea. She has multiple frustrations and has been verbally abusive and argumentative with the staff throughout the day. She reports she can't rest in the hospital and is frustrated that a bunch of 30-year-old's are continually hovering around her. She simply wants to go home and be left alone. She plans to participate in a mandaen group to help with sobriety and after fairly lengthy discussion agreed to home health for physical therapy before depending on mandaen or [facility] exercise classes for strengthening. The patient was ambulating in the room utilizing a walker when I visited, bent down and picked up her phone from the floor doing so without losing her balance, and slowly made her way around the room and several obstacles to sit down. She calmed as we discussed the medication she is on and why she is on them in addition to the severity of her presenting illness and why her hospitalization has been as long as it has been. I told her that I felt she would benefit from remaining in the hospital another day to work with physical therapy but that if she felt strongly about discharge today and would agree to home health physical therapy discharge can be coordinated today. The patient was oriented to [facility], the end of February 2017. She describes a coherent plan for outpatient follow-up for alcohol treatment. Respirations were nonlabored with good airflow and breath sounds clear. There is minimal tenderness in the epigastrium on palpation of the abdomen and bowel sounds are present. Potassium and magnesium were supplemented prior to discharge and the patient was started on carvedilol for management of hypertension. Lipase remains mildly elevated but less than 3 times normal at discharge and transaminases have normalized. She received metoprolol once yesterday but will discharge on carvedilol due to indication with management for portal hypertension. Discharge plans were reviewed with the patient's [id number] and later with her by phone. Additionally plans were discussed with case management who is coordinating home health. Prescription provided for walker at home. Indication for prescribed medications reviewed with the patient. Follow-up with provider at [facility] in one week. Discharge Plan - Discharge Disposition Discharge Date: 03/19/17 Disposition: 86 Home Health Service *Condition: Stable Reason For Visit (Visit label in EMR): acute pancreatitis - Discharge Medications *Discharge Medications: New Folic Acid [Folate] 1 mg PO DAILY #30 tab Omeprazole 1 tab PO ACB #30 tab Thiamine HCl 100 mg PO DAILY #30 tab Carvedilol [Coreg] 6.25 mg PO BIDWM #60 tab Nicotine Patch [Nicoderm] 14 mg TD DAILY #14 patch - Discharge Packet/Instructions *Diet: regular diet, small snacks frequently may help with poor appetite instead of larger meals. Consider nutritional supplements like Ensure or Boost. *Activity: as tolerate with walker and as instructed by physical therapy *Pain Management/Treatment: Tylenol as needed per package instructions *Wound Care: Not applicable Additional Instructions: Take carvedilol 6.25 mg twice daily to help with blood pressure and minimize risk of bleeding from your esophagus. Take folic acid and thiamine once daily-prescription sent to [facility]-or you can get a B- complex vitamin to use instead but make sure you are getting about 1 mg of folic acid and 100 mg of thiamine. Take omeprazole 20 mg daily to protect your stomach from acid-this can be purchased [id number]. You can get nicotine patches or nicotine gum [id number] to help stop smoking. Good luck with alcohol cessation. Consider Alcoholics Anonymous or celebrate recovery to assist your efforts. *Expected Signs/Symptoms: Unsteadiness when you walk *Notify Physician if: You fall, have nausea or vomiting, or increased abdominal pain. *During Business Hours Contact: [facility] *After Business Hours Contact: Call [facility] at [phone] and ask that the on-call physician be paged *Pending Lab/Results: No Pending Lab - Referrals/Follow Up *Referrals/Follow Up: Charisma Mary APRN [Family Provider] - 1 Week - Patient Handouts Patient Handouts: Pancreatitis (GEN), Alcohol Use Disorder (GEN) - Dismissal Complete Discharge Instructions are:: Complete Physician Narrative - Narrative Attestation Narrative: Date: 03/19/17 Time: 2023
== END 2017-03-19 19:15 | disposition home health service (06) | DRG 439 ==
LOC: ED 18:54 → SUATTDRO 21:29 → MED 21:29
PROVIDERS: ADMIT Hospitalist; ATTEND Internal Medicine